=== PATIENT | male | born 2000 | race Caucasian/White ===

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

== ENCOUNTER 2021-10-12 20:30 | Emergency (ER) | payer OTHER ==
[2021-10-12 20:37] VITALS: BP 134/69
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
--- NOTE | 2021-10-12 22:42 | CT Report ---
PROCEDURE: HEAD WO INDICATIONS: head inj TECHNIQUE: Noncontrast 5 mm thick angled axial sections acquired from the foramen magnum to the vertex. For rad iation dose reduction, the following was used: automated exposure control, adjustment of mA and/or k V according to patient size. COMPARISON: None. FINDINGS: Image quality: Excellent. CSF spaces: Basal cisterns are patent. No extra-axial fluid collections. Ventricles are normal in size and shape. Brain: No intracranial hemorrhage, mass, or mass effect. Reyes-white matter interface appears preser noemi. Skull and face: Calvarium and visualized facial bones are intact, without suspicious lesions. Sinuses: Visualized sinuses and mastoids are clear. IMPRESSION: 1. No acute intracranial abnormality. Reviewed by: Teddy Sandoval MD on 10/12/2021 10:41 PM PDT Approved by: Teddy Sandoval MD on 10/12/2021 10:41 PM PDT Station ID: [id number]
== END 2021-10-12 23:13 | disposition home or self-care (01) ==
LOC: ED 20:30
DX: S06.0X0A Concussion without loss of consciousness, initial encounter (principal); S00.83XA Contusion of other part of head, initial encounter; W16.622A Jumping or diving into natural body of water striking bottom causing other injury, initial encounter; Y93.11 Activity, swimming; Y92.828 Other wilderness area as the place of occurrence of the external cause
CPT/HCPCS: 99282; 99284